=== PATIENT | female | born 1975 | race Caucasian/White ===

== ENCOUNTER 2017-07-30 15:52 | Emergency (ER) | payer MEDICAID | END 2017-07-30 19:03 | disposition home or self-care (01) | LOC: D.ER 15:52 | DX: J15.9 Unspecified bacterial pneumonia (principal) ==

== ENCOUNTER → 2017-11-10 08:30 | Outpatient (CLI) | payer OTHER, MEDICAID ==
--- NOTE | ~2017-11-10 | EC ---
PATIENT:SHAYY PHAN DATE OF SERVICE: 11/10/17 SEX: F MEDICAL RECORD: [id number] DATE OF : 71 LOCATION:[facility], [facility] AGE OF PATIENT: 42 ADMISSION DATE: 11/10/17 REFERRING PHYSICIAN: INTERPRETING PHYSICIAN: ASHOK DOMINGUEZ MD ECHOCARDIOGRAM REPORT ECHO CHARGES 4 ECHO COMPLETE Date: 11/10 CLINICAL DIAGNOSIS: SVT/PALPITATIONS/HTN/CP/ DYSPNEA/COPD ECHOCARDIOGRAPHIC MEASUREMENTS (adult normal given) AC root (d.<3.7cm) 2.8 cm LV Septum d (<1.2 cm> 1.6 cm Valve Excursion 1.4 cm LV Septum (systole) 2.5 cm Left Atria (s.<4.0cm> 4.0 cm LVPW d(<1.2cm) 1.5 cm RV (d.<2.3cm) 2.1 cm LVPW (sytole) 1.7 cm LV diastole(<5.6CM) 5.2 cm MV E-F(>70mm/sec) cm LV systole 3.6 cm LVOT Diameter 1.9 cm MV exc.(>10mm) cm Est.ejection fraction (50-75%) % DOPPLER: LVIT cm/sec A 90.0 cm/sec E 103 cm/sec LA cm/sec RVSP 37.3 mmHg LVOT 134 cm/sec AOP1/2T m/s Asc. 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 Dominguez TAPE# PACS Pericardial Effusion N DATE OF SERVICE: PROCEDURE: Transthoracic echocardiogram. FINDINGS: 1. Left ventricle is not well visualized, but appears to have normal function. Inflow characteristics are normal. The ejection fraction appears to be preserved. 2. The aortic valve is normal structurally. 3. The left atrium appears to be mildly dilated. ECHOCARDIOGRAM REPORT [id number] SHAYY PHAN 4. The mitral valve is not well visualized, but appears to be overall normal with trace mitral regurgitation. 5. Tricuspid valve not well visualized, but overall normal. 6. Pericardium is normal. 7. The right ventricle and right atrium are normal size, normal structure, normal function. 8. Interatrial septum is not well visualized, but grossly normal. 9. The pulmonic valve appears to be normal. IMPRESSION: The patient has normal ejection fraction and appears to have a normal echocardiogram for stated age. 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
[~2017-11-10 08:30] MED LIST: METFORMIN HCL500 M1 PO
[2017-12-03 07:05] VITALS: BMI 50.4
== END | disposition home or self-care (01) ==
LOC: D.ECHO 11-04 09:00
DX: I47.1 Supraventricular tachycardia (principal); R00.2 Palpitations; J44.9 Chronic obstructive pulmonary disease, unspecified; I10 Essential (primary) hypertension; R07.9 Chest pain, unspecified; R06.02 Shortness of breath

== ENCOUNTER 2017-12-03 06:46 | Outpatient (CLI) | payer MEDICAID ==
[~2017-12-03] VITALS: Ht 162.6 cm; Wt 133.2 kg
--- NOTE | ~2017-12-03 | HEMODYNAMI ---
PATIENT:SHAYY PHAN MEDICAL RECORD: [id number] : 71 LOCATION:[facility] ADMISSION DATE: 12/03/17 Generatedon:12/03/20178:55 Patient name: SHAYY PHAN Patient #: [id number] SSN: : 1975 Date of study: 12/03/2017 Page: Of Hemodynamic Procedure Report Patient Data Patient Demographics Procedure consent was obtained First Name: SHAYY Gender: Female Last Name: SYLVESTER : 1975 Middle Initial: LUKE Age: 42 year(s) Patient #: [id number] Race: Unknown Additional ID: [id number] Contact details Address: [address] [place] [address] State: [place] City: [place] [place] [place] Zip code: [address] Admission Admission Data Admission Date: 12/03/2017 Admission Time: 6:46 Procedure Procedure Types Cath Procedure Diagnostic Procedure LHC LHC w/Coronaries Sedation Charges Moderate Sedation up to 15 minutes Procedure Description Procedure Date Procedure Date: 12/03/2017 Procedure Start Time: 8:35 Procedure End Time: 8:51 Procedure Staff Name Function Cezar Oliveira MD Performing Physician Modesta Tolbert RT Monitor Phani Coleman RN Nurse Breonna Garza RT Scrub Procedure Data Cath Procedure Fluoroscopy Diagnostic fluoroscopy Total fluoroscopy Time: 2.2 time: 2.2 min min Diagnostic fluoroscopy Total fluoroscopy dose: 550 dose: 550 mGy mGy Contrast Material Contrast Material Type Amount (ml) Isovue 300 22 Entry Location Entry Primary Successful Side Size Upsize Upsize Entry Closure Cheng ccessful Closure Location (Fr) 1 (Fr) 2 (Fr) Remarks Device Remarks Radial Right 6 Fr Mechanical artery Short Compression Estimated blood loss: 5 ml Diagnostic catheters Device Type Used For End Catheter Placement DIAGNOSTIC Elias 110cm Multi-vessel 5Fr catheter ([id number]) Angiography Procedure Complications No complications Procedure Medications Medication Administration Route Dosage 0.9% NaCl I.V. 100 ml/hr Oxygen etCO2 Nasal cannula 2 l/min Heparin Flush Bag added to field 2 bags (1000units/500ml NS) Lidocaine 2% added to field 20 Radial Cocktail added to field 1 syringe (Verapomil 2mg/Nitro 400mcg/Heparin 1500units) Benadryl I.V. 50 mg Versed I.V. 2 mg Fentanyl I.V. 50 mcg Versed I.V. 2 mg Fentanyl I.V. 25 mcg Fentanyl I.V. 25 mcg Radial Cocktail I.A. 1 syringe (Verapomil 2mg/Nitro 400mcg/Heparin 1500units) Hemodynamics Rest Heart Rate: 77 (bpm) Pressure Samples Time Site Value (mmHg) Purpose Heart Use Rate(bpm) 8:45 LV 175/3,28 EDP 88 8:45 LV 159/-16,11 EDP 84 Snapshots Pre Cath Intra NCS Post Cath Vital Signs Time Heart Resp SPO2 etCO2 NIBP (mmHg) Rhythm Pain Sedation Rate (ipm) (%) (mmHg) Status Level (bpm) 8:19:37 75 30 100 33.6 178/97(153) NSR 0 (11) 10(A) , No pain 8:24:30 74 31 99 21.6 125/97(117) NSR 0 (11) 10(A) , No pain 8:30:00 76 18 98 39.6 146/86(129) NSR 0 (11) 10(A) , No pain 8:35:44 77 14 100 33.6 153/91(139) NSR 0 (11) 10(A) , No pain 8:40:28 72 18 99 38.8 150/88(136) NSR 0 (11) 10(A) , No pain 8:45:13 89 17 100 34.3 155/107(119) NSR 0 (11) 10(A) , No pain 8:50:00 83 17 98 38.8 154/91(123) NSR 0 (11) 10(A) , No pain Medications Time Medication Route Dose Verified Delivered Reason Notes Effectiveness by by 8:17:50 0.9% NaCl I.V. 100 Gordon Gordon Per ml/hr Gabriella Quiroz physician RN RN 8:17:58 Oxygen etCO2 2 l/min Gordon Gordon Per Nasal Gabriella Quiroz physician cannula RN RN 8:18:11 Heparin Flush added 2 bags Gordon Gordon used for Bag to Lorigan Lorigan procedure (1000units/500ml field RN RN NS) 8:18:21 Lidocaine 2% added 20ml Gordon Gordon for local to vial Lorigan Lorigan anesthetic field RN RN 8:18:31 Radial Cocktail added 1 Gordon Gordon used for (Verapomil to syringe Lorigan Lorigan procedure 2mg/Nitro field RN RN 400mcg/Heparin 1500units) 8:21:21 Benadryl I.V. 50 mg Gordon Gordon Per Lorigan Gabriella physician RN RN 8:34:04 Versed I.V. 2 mg Gordon Gordon for sedation Lorle Lorle RN RN 8:34:13 Fentanyl I.V. 50 mcg Gordon Gordon for sedation Lorle Quiroz RN RN 8:35:42 Versed I.V. 2 mg Gordon Gordon for sedation Lorle Quiroz RN RN 8:35:52 Fentanyl I.V. 25 mcg Gordon Gordon for sedation Lorle Quiroz RN RN 8:44:21 Fentanyl I.V. 25 mcg Gordon Gordon for sedation Lorle Quiroz RN RN 8:44:40 Radial Cocktail I.A. 1 Gordon Cezar for (Verapomil syringe Lorigan Norred MD vasodilation 2mg/Nitro RN 400mcg/Heparin 1500units) Procedure Log Time Note 7:39:41 Diagnostic Cath Status : Elective 7:40:01 Modesta Tolbert RT(R) sent for patient. Start room use. 7:40:02 Time tracking: Regular hours (M-F 7:00 - 5:00) 7:40:06 Plan of Care:Hemodynamics will remain stable., Cardiac rhythm will remain stable., Comfort level will be maintained., Respiratory function will remain adequate., Patient/ family verbilizes understanding of procedure., Procedure tolerated without complication., Recovers from procedure without complications.. 8:10:24 Patient received from Pre/Post Procedure Room to CCL 2 Alert and oriented. Tansferred to table in Supine position. 8:10:25 Warm blankets applied, and marco antonio hugger turned on for patient comfort. 8:10:25 Correct patient and procedure confirmed by team. 8:10:27 Signed procedure consent form obtained from patient. 8:10:28 ECG and BP/O2 sat monitors applied to patient. 8:17:50 0.9% NaCl 100 ml/hr I.V. was administered by Gordon Quiroz RN; Per physician; 8:17:51 Vital chart was started 8:17:58 Oxygen 2 l/min etCO2 Nasal cannula was administered by Gordon Quiroz RN; Per physician; 8:18:11 Heparin Flush Bag (1000units/500ml NS) 2 bags added to field was administered by Gordon Quiroz RN; used for procedure; 8:18:21 Lidocaine 2% 20ml vial added to field was administered by Gordon Quiroz RN; for local anesthetic; 8:18:31 Radial Cocktail (Verapomil 2mg/Nitro 400mcg/Heparin 1500units) 1 syringe added to field was administered by Gordon Quiroz RN; used for procedure; 8:21:05 Baseline sample Acquired. 8:21:10 Rhythm: sinus rhythm 8:21:13 Full Disclosure recording started 8:21:18 H&P Date Dictated: 12/03/2017 Within 30 days and on chart., H&P Addendum completed by physician on day of procedure. (MUST COMPLETE FOR ALL OUTPATIENTS). 8:21:20 Pre-procedure instructions explained to patient. 8:21:20 Pre-op teaching completed and patient verbalized understanding. 8:21:21 Benadryl 50 mg I.V. was administered by Gordon Quiroz RN; Per physician; 8:21:24 Family in patients room. 8:21:25 Patient NPO since Midnight. 8:21:28 Is the patient allergic to Iodine/contrast media? No. 8:21:29 Was the patient premedicated? No 8:22:11 Is patient on blood thinner?Yes 8:22:14 ACC The patient was administered the following blood thiners within the last 24 hours: ACCPlavix 8:22:15 Patient diabetic? Yes. 8:22:16 If diabetic: On Metformin? Yes 8:22:19 If on Metformin: Last Dose? 12/01/2017 8:22:22 Previous problem with sedation/anesthesia? No ? 8:22:24 Snore? Yes 8:22:25 Sleep apnea? No 8:22:25 Deviated septum? No 8:22:26 Opens mouth fully? Yes 8:22:27 Sticks out tongue? Yes 8:22:30 Airway obstruction? Yes copd 8:22:40 Dentures? Yes loose tooth 8:22:43 Pre procedure: right dorsailis pedis pulse 2+ Normal; easily identifiable; not easily obliterated 8:22:45 Pre procedure: left dorsailis pedis pulse 2+ Normal; easily identifiable; not easily obliterated 8:22:47 Patient pain scale 0/10 ?. 8:22:54 IV patent on arrival in right forearm with 0.9% NaCl at [facility]. 8:22:56 Lab results completed and on chart. 8:23:00 Right Radial & Right Groin area was prepped with chlora-prep and draped in sterile fashion 8:23:01 Alarms reviewed by R. N. 8:23:01 Sharps counted by scrub and verified by R.N. 8:23:03 Physician arrived 8:23:04 --------ALL STOP TIME OUT------ 8:23:04 Final Timeout: patient, procedure, and site verified with staff and physician. All members of the team are in agreement. 8:23:06 Right Radial & Right Groin site verified by team. 8:23:09 Physical assessment completed. ASA score P 2 - A patient with mild systemic disease as per Cezar Oliveira MD. 8:23:13 Sedation plan: IV Moderate Sedation Medication:Versed, Fentanyl 8:23:17 Use device set Radial Dx or PCI 8:23:18 ACIST Syringe (04360) opened to sterile field. 8:23:18 Medline Cath Pack ([id number]) opened to sterile field. 8:23:19 Bag Decanter () opened to sterile field. 8:23:19 DIAGNOSTIC WIRE .035 260cm J wire (706919) opened to sterile field. 8:23:20 ACIST Hand Control (20818) opened to sterile field. 8:23:20 ACIST Manifold (42478) opened to sterile field. 8:23:21 Tegaderm 4 x 4 (1626W) opened to sterile field. 8:23:23 MBrace Wrist Support ([id number]) opened to sterile field. 8:23:24 SHEATH 6Fr Prelude Radial ([id number]) opened to sterile field. 8:26:07 Zero performed for pressure channel P1 8:32:31 Zero performed for pressure channel P1 8:32:39 Zero performed for pressure channel P1 8:32:52 Zero performed for pressure channel P1 8:32:59 Zero performed for pressure channel P1 8:33:08 Zero performed for pressure channel P1 8:33:17 Zero performed for pressure channel P1 8:34:04 Versed 2 mg I.V. was administered by Gordon Quiroz RN; for sedation; 8:34:13 Fentanyl 50 mcg I.V. was administered by Gordon Quiroz RN; for sedation; 8:35:13 Procedure started. 8:35:29 Local anesthetic to right radial artery with Lidocaine 2% by Cezar Oliveira MD.INITIAL ACCESS ONLY 8:35:42 Versed 2 mg I.V. was administered by Gordon Quiroz RN; for sedation; 8:35:52 Fentanyl 25 mcg I.V. was administered by Gordon Quiroz RN; for sedation; 8:42:41 A 6 Fr Short sheath was inserted into the Right Radial artery 8:42:48 FIELDER XT 190cm guidewire ([id number]) opened to sterile field. 8:43:15 Fielder wire used to gain access to right radial artery 8:44:03 A DIAGNOSTIC Elias 110cm 5Fr catheter ([id number]) was advanced over the wire and used for Multi-vessel Angiography. 8:44:21 Fentanyl 25 mcg I.V. was administered by Gordon Quiroz RN; for sedation; 8:44:40 Radial Cocktail (Verapomil 2mg/Nitro 400mcg/Heparin 1500units) 1 syringe I.A. was administered by Cezar Oliveira MD; for vasodilation; 8:45:28 Zero performed for pressure channel P1 8:45:54 LV hemodynamics recorded. 8:45:55 LV gram done using MOYA 8:45:58 Injector settings: Ml/sec: 5, Volume: 15, 8:46:56 LCA angiography performed. 8:46:59 Injector settings: Ml/sec: 3, Volume: 6, 8:49:14 RCA angiography performed. 8:49:17 Injector settings: Ml/sec: 3, Volume: 6, 8:49:20 Catheter removed. 8:50:03 TR BAND Large ([id number]) opened to sterile field. 8:50:21 Sheath removed intact; hemostasis achieved with Mechanical Compression to the Right Radial artery. 8:50:23 Procedure ended.(Physican Out) 8:50:34 Fluoroscopy time 02.20 minutes. 8:50:38 Fluoroscopy dose: 550 mGy 8:50:38 Flurop Dose total: 550 8:50:41 Contrast amount:Isovue 300 22ml. 8:50:43 Sharps counted by scrub and verified by R.N. 8:50:46 TR band inflated with 13cc of air. 8:50:47 Insertion/operative site no bleeding no hematoma. 8:50:56 Post right radial artery:stable 8:50:58 Post Procedure Pulses reassessed and unchanged 8:51:00 Post procedure rhythm: unchanged. 8:51:03 Estimated blood loss: 5 ml 8:51:05 Post procedure instruction explained to patient.Patient verbalizes understanding. 8:51:07 Patient needs reinforcement of post procedure teaching. 8:51:26 Procedure type changed to Cath procedure, Diagnostic procedure, LHC, LHC w/Coronaries, Sedation Charges, Moderate Sedation up to 15 minutes 8:51:29 Procedure and supply charges have been captured, reviewed, submitted and are correct. 8:51:33 Procedure Complication : No complications 8:51:35 Vital chart was stopped 8:51:35 See physician's report for complete and final results. 8:51:38 Report given to Pre/Post Procedure Room. 8:51:40 Patient transfered to Pre/Post Procedure Room with Stretcher. 8:51:43 Procedure ended. 8:51:43 Full Disclosure recording stopped 8:51:47 End room use (Document Last) Device Usage Item Name Manufacture Quantity Catalog Number Hospital Part Current M inimal Lot# / Charge Number Stock Stock Serial# Code ACIST Syringe Acist 1 37519 976484 924353 182273 2 0 (11429) [employer] Medline Cath Cardinal 1 [id number] 835941 44521 022033 5 Pack Health ([id number]) Bag Decanter Microtek 1 087812 07894 762349 5 () [employer] Inc. DIAGNOSTIC WIRE [place] 1 749917 881236 065653 060566 3 0 .035 260cm J wire (576735) ACIST Hand Acist 1 98275 679257 106161 336809 5 Control (46377) [employer] Inc ACIST Manifold Acist 1 71700 601604 767091 117441 5 (32347) [employer] Inc Tegaderm 4 x 4 3M 1 1626W 298446 382886 820570 5 (1626W) MBrace Wrist Advanced 1 140-0250-00 974890 55794 150218 5 Support Vascular ([id number]) Dynamics SHEATH 6Fr Merit 1 [id number] 302338 201942 865377 5 Prelude Radial Medical ([id number]) FIELDER XT Blunt 1 [id number] 844990 15729 744930 5 190cm guidewire Vascular ([id number]) DIAGNOSTIC Terumo 1 40-0191 882474 413635 967589 5 Elias 110cm 5Fr catheter (792856) TR BAND Large Terumo 1 [id number] 234073 232495 608972 4 0 ([id number]) Signature Audit [place] Stage Time Signature Unsigned Intra-Procedure 12/03/2017 Modesta Tolbert 8:55:43 AM RT(R) Signatures Monitor : Modesta Tolbert RT Signature : Date : Time : [place] [id number] [place] [address]
[2017-12-03] MEDS ORDERED: METFORMIN HCL500 M1 PO (06:54)
[2017-12-03 07:05] VITALS: BP 169/92; Ht 162.6 cm; Wt 133.2 kg
[2017-12-03 07:41] LABS: BASOPHILS 0.1 % (0-2); HEMATOCRIT 43.4 % (36.0-48.0); HEMOGLOBIN 14.2 g/dL (12-16); IMMATURE GRANULOCYTES 0.5 % (0-5); LYMPHOCYTES 25.9 % (15-50); MCH 28.6 pg (26.0-34.0); MCHC 32.7 g/dL (31.0-37.0); MCV 87.5 fL (80.0-100.0); MEAN PLATELET VOLUME 9.8 fL (7.4-10.4); MONOCYTES 8.8 % (2-11); NEUTROPHILS 63.7 % (40-80); PLATELET COUNT 148 10x3/uL (130-400); RBC 4.96 10x6/uL (4.00-5.40); RDW 14.2 % (11.5-14.5); WBC 8.8 10x3/uL (4.8-10.8)
[2017-12-03 07:52] LABS: CALC OSMOLALITY 284 mosm/kg (275-300); CALCIUM 8.8 mg/dL (8.5-10.1); CARBON DIOXIDE 27.2 mmol/L (21.0-32.0); CHLORIDE - SERUM 103 mmol/L (98-107); CREATININE - SERUM 0.8 mg/dL (0.6-1.3); GLUCOSE 162 mg/dL (74-106); POTASSIUM - SERUM 3.9 mmol/L (3.5-5.1); SODIUM 140 mmol/L (136-145); UREA NITROGEN 18 mg/dL (7-18); eGFR NON AFRICAN AMERICAN 82 mL/min (90-120)
[2017-12-03 07:57] LABS: HCG SERUM NEGATIVE (NEGATIVE)
== END 2017-12-03 11:10 | disposition home or self-care (01) ==
LOC: D.CATH 06:46
PROVIDERS: Internal Medicine Cardiovascular Disease
DX: R07.9 Chest pain, unspecified (principal); R94.39 Abnormal result of other cardiovascular function study; I10 Essential (primary) hypertension; Z01.812 Encounter for preprocedural laboratory examination

== ENCOUNTER 2018-01-23 23:08 | Emergency (ER) | payer SELFPAY ==
[~2018-01-23] VITALS: Ht 162.6 cm; Wt 132.9 kg
[2018-01-23 23:10] VITALS: Ht 162.6 cm; Wt 132.9 kg
[2018-01-23 23:56] LABS: BASOPHILS 0.1 % (0-2); HEMATOCRIT 45.2 % (36.0-48.0); HEMOGLOBIN 14.9 g/dL (12-16); IMMATURE GRANULOCYTES 0.7 % (0-5); LYMPHOCYTES 33.8 % (15-50); MCH 28.7 pg (26.0-34.0); MCV 87.1 fL (80.0-100.0); MEAN PLATELET VOLUME 9.9 fL (7.4-10.4); MONOCYTES 9.7 % (2-11); NEUTROPHILS 54.7 % (40-80); PLATELET COUNT 149 10x3/uL (130-400); RBC 5.19 10x6/uL (4.00-5.40); WBC 8.6 10x3/uL (4.8-10.8)
[2018-01-24 00:06] LABS: APTT 26.9 SECONDS (22.8-39.4); INR 0.9 (0.85-1.17); PROTIME 11.8 SECONDS (11.6-15.0)
[2018-01-24 00:18] LABS: ALBUMIN 3.2 g/dL (3.4-5.0); ALKALINE PHOSPHATASE 88 U/L (46-116); ALT (SGPT) 52 U/L (10-68); BILIRUBIN - TOTAL 0.16 mg/dL (0.2-1.3); CALC OSMOLALITY 284 mosm/kg (275-300); CALCIUM 8.9 mg/dL (8.5-10.1); CARBON DIOXIDE 28.8 mmol/L (21.0-32.0); CHLORIDE - SERUM 101 mmol/L (98-107); CREATININE - SERUM 0.8 mg/dL (0.6-1.3); POTASSIUM - SERUM 4.2 mmol/L (3.5-5.1); PROTEIN - SERUM 7.3 g/dL (6.4-8.2); SODIUM 137 mmol/L (136-145); UREA NITROGEN 13 mg/dL (7-18); eGFR NON AFRICAN AMERICAN 82 mL/min (90-120)
[2018-01-24 00:20] LABS: APPEARANCE HAZY (CLEAR); BILIRUBIN NEGATIVE (NEGATIVE); COLOR YELLOW (YELLOW); GLUCOSE 1000 mg/dL (NEGATIVE); KETONE NEGATIVE (NEGATIVE); NITRITE NEGATIVE (NEGATIVE); PH 6.5 (5.0-6.0); PROTEIN NEGATIVE (NEGATIVE); SPECIFIC GRAVITY 1.015 (1.005-1.020); UROBILINOGEN NORMAL (NORMAL)
[2018-01-24 00:21] LABS: GLUCOSE 291 mg/dL (74-106)
[2018-01-24 00:23] LABS: CKMB 0.7 U/L (0.0-3.6); CREATINE KINASE 64 UL (21-215); PRO BNP 222 pg/mL (0-125); TROPONIN-I < 0.017 ng/mL (0.000-0.060)
[2018-01-24 00:26] LABS: UDS - AMPHET NEGATIVE QUAL (NEGATIVE); UDS - BARB NEGATIVE QUAL (NEGATIVE); UDS - BENZO NEGATIVE QUAL (NEGATIVE); UDS - COCAINE NEGATIVE QUAL (NEGATIVE); UDS - OPIATE NEGATIVE QUAL (NEGATIVE); UDS - PCP NEGATIVE QUAL (NEGATIVE); UDS - THC NEGATIVE QUAL (NEGATIVE)
[2018-01-24 00:27] LABS: BACTERIA MODERATE /hpf (NONE SEEN); WHITE CELLS - URINE 0-5 /hpf (0-5)
[2018-01-24 03:16] VITALS: BP 212/111
== END 2018-01-24 03:17 | disposition home or self-care (01) ==
LOC: D.ER 23:08
PROVIDERS: Family Medicine
DX: K59.00 Constipation, unspecified (principal); E11.9 Type 2 diabetes mellitus without complications; I10 Essential (primary) hypertension; F17.200 Nicotine dependence, unspecified, uncomplicated

== ENCOUNTER 2020-11-08 07:16 | Day surgery (SDC) | payer BC ==
[~2020-11-08] VITALS: Ht 162.6 cm; Wt 125.6 kg
[~2020-11-08 07:16] MED LIST changes: +ALBUTEROL SULF8.5 GM INH; +BAYER CHEWABLE81 MG PO; +CELEBREX 100 M100 MG PO; +COREG6.25 MG PO; +DICLOFENAC SODI50 MG PO; +GLUCOPHAGE500 MG PO; +GLUCOTROL 5 MG T5 MG PO; +LEVEMIR FL100 UNIT/1 SC; +LISINOPRIL40 MG PO; +LOPID600 MG PO; +NEURONTIN600 MG PO; +NORVASC5 MG PO; +NOVOLOG FLEXPEN INJ; +OMEPRAZOLE40 MG PO; +OZEMPIC1 MG/0.75 SC; +SPIRIVA RESPIMAT4 G1 INH; +ZANAFLEX4 MG PO; +ZOFRAN ODT4 MG/UDTAB PO
[2020-11-08 07:49] LABS: ANION GAP 14.1 mmol/L (8-16); CALCIUM 8.8 mg/dL (8.5-10.1); CARBON DIOXIDE 26.2 mmol/L (21.0-32.0); CREATININE - SERUM 0.9 mg/dL (0.6-1.3); POTASSIUM - SERUM 4.3 mmol/L (3.5-5.1)
[2020-11-08 08:14] LABS: BASOPHILS 0.1 % (0-2); EOSINOPHILS 1.2 % (0-7); HEMATOCRIT 43.6 % (36.0-48.0); HEMOGLOBIN 13.6 g/dL (12-16); IMMATURE GRANULOCYTES 0.4 % (0-5); LYMPHOCYTE ABS# 1.67 10x3/uL (1.18-3.74); LYMPHOCYTES 24.9 % (15-50); MCH 27.2 pg (26.0-34.0); MCHC 31.2 g/dL (31.0-37.0); MCV 87.2 fL (80.0-100.0); MONOCYTES 9.2 % (2-11); NEUTROPHIL ABS# 4.31 10x3/uL (1.56-6.13); NEUTROPHILS 64.2 % (40-80); RDW 14.1 % (11.5-14.5); WBC 6.7 10x3/uL (4.8-10.8)
[2020-11-08 08:16] LABS: PLATELET COUNT 229 10x3/uL (130-400)
[2020-11-08 08:20] VITALS: BP 149/86; Ht 162.6 cm; Wt 125.6 kg
--- NOTE | 2020-11-08 10:01 | NUR ---
[place] PRODUCTS USED: [employer]ICS PNE LEAD #1901 LOT #[id number] EXP. DATE: 07/03/2022 [employer] LEAD IMPLANT KIT #1701 LOT # [id number] EXP. DATE: 07/20/2021 [employer] PNE LEAD IMPLANT KIT #1701 LOT #[id number] EXP DATE: 07/20/2021
--- NOTE | 2020-11-08 12:20 | NUR ---
1135 IV REMOVED AND PRESSURE HELD AND INSTRUCTIONS GIVEN.
== END 2020-11-08 12:00 | disposition home or self-care (01) ==
LOC: D.OPS 07:16
PROVIDERS: Anesthesiology; ATTEND Obstetrics & Gynecology Maternal & Fetal Medicine
DX: N39.41 Urge incontinence (principal); I10 Essential (primary) hypertension; E11.9 Type 2 diabetes mellitus without complications; Z79.84 Long term (current) use of oral hypoglycemic drugs; J44.9 Chronic obstructive pulmonary disease, unspecified; K21.9 Gastro-esophageal reflux disease without esophagitis